=== PATIENT | male | born 1990 | race Caucasian/White ===

== ENCOUNTER 2017-02-07 00:38 | Emergency (ER) | payer SELFPAY ==
[~2017-02-07] VITALS: Ht 175.3 cm; Wt 77.3 kg
[2017-02-07 00:59] LABS: HEMATOCRIT 47.2 % (39.2-51.8); HEMOGLOBIN 16.3 g/dL (13.7-18.0); WHITE BLOOD COUNT 11.2 x10^3/uL (3.4-10)
[2017-02-07] MEDS ORDERED: LIDOCAINE 1%, 20ML SQ ONE (01:00)
[2017-02-07] MEDS ORDERED: DIPH,PERTUSS(ACELL),TET VAC/PF 0.5 ML IM-VACC ONE ×2 (01:00→01:21)
[2017-02-07 01:10] LABS: BLOOD UREA NITROGEN 19 mg/dL (7-18)
[2017-02-07] MEDS ORDERED: LIDOCAINE 1%, 20ML ONE (01:21)
[2017-02-07] MEDS ORDERED: OMNIPAQUE 350 MG/ML, 100ML BOTTLE ONE (02:28)
[2017-02-07 05:56] VITALS: BP 119/74
== END 2017-02-07 07:20 | disposition home or self-care (01) ==
LOC: ED 07:00
DX: S22.42XA Multiple fractures of ribs, left side, initial encounter for closed fracture (principal); S01.112A Laceration without foreign body of left eyelid and periocular area, initial encounter; S40.021A Contusion of right upper arm, initial encounter; F10.220 Alcohol dependence with intoxication, uncomplicated; Y04.0XXA Assault by unarmed brawl or fight, initial encounter; Y93.89 Activity, other specified; Y92.89 Other specified places as the place of occurrence of the external cause; Y99.8 Other external cause status
CPT/HCPCS: 12011; 36415; 70450; 70486; 71020; 72125; 73060; 73552; 74177; 80048; 80307; 82040; 85025; 99285; Q9967; G0479

== ENCOUNTER 2020-09-23 10:28 | Emergency (ER) | payer SELFPAY ==
[~2020-09-23] VITALS: Ht 180.3 cm; Wt 100.0 kg
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
[2020-09-23 10:31] VITALS: BP 118/70
--- NOTE | 2020-09-23 11:09 | NUR ---
PT SLEEPING ON GURNEY, NADN/VSS. RESPIRATIONS EVEN AND UNLABORED. CALL LIGHT WITHIN REACH
--- NOTE | 2020-09-23 11:30 | NUR ---
ERP AT . PT STATED HE COULD DC IF HE COULD CALL SOMEONE TO TAKE HIM HOME . PT ATTEMPTED TO CALL PEOPLE BY REGISTRATION DESK, BUT UNABLE TO HOLD THE PHONE. PT REDIRECTED BACK TO ROOM TO [facility]
--- NOTE | 2020-09-23 11:50 | NUR ---
PT ELOPED, SECURITY CALLED. CHARGE NURSE NOTIFIED. PT BELONGINGS LEFT IN ROOM
--- NOTE | 2020-09-23 12:14 | NUR ---
PT BELONGINGS BAGGED & LABELED AND GAVE TO SECURITY.
== END 2020-09-23 12:37 | disposition left against medical advice (07) ==
LOC: ED 12:13
DX: F10.121 Alcohol abuse with intoxication delirium (principal); G92 Toxic encephalopathy; Y90.0 Blood alcohol level of less than 20 mg/100 ml
CPT/HCPCS: 99283